=== PATIENT | male | born 1945 | race Caucasian/White ===

== ENCOUNTER 2017-09-30 19:01 | Emergency (ER) | payer OTHER ==
[~2017-09-30] VITALS: Ht 182.9 cm; Wt 106.6 kg
[~2017-09-30 19:01] MED LIST: CARAFATE 1GM1000 MG PO; CRESTOR20 MG PO; EDARBYCLOR 40 M1 TAB PO; JANUMET PO; JENTADUETO 2.51 TAB PO; MULTI VITAMINS1 TAB PO; NORCO 325 MG-51 TAB PO; PERCOCET 325 MG1 TA2 PO; PRILOSEC40 MG PO; VITAMIN C500 M3 PO; VITAMIN D1000 IU PO; ZOFRAN 4 MG TABL4 MG PO; ZOFRAN ODT4 MG PO
--- NOTE | 2017-09-30 19:42 | ED GI/GU/ABDOMINAL COMPLAINT ---
History of Present Illness General Chief Complaint: Abdominal Pain/Flank Pain Stated Complaint: ABD PAIN Source: patient Exam Limitations: no limitations Vital Signs & Intake/Output Vital Signs & Intake/Output Vital Signs Date Time Temp Pulse Resp B/P B/P Pulse O2 O2 Flow FiO2 Mean Ox Delivery Rate 09/30 2110 97.5 57 18 142/77 95 09/30 1917 98.3 81 18 199/76 98 Room Air ED Intake and Output 10/01 0000 09/30 1200 Intake Total 1000 Output Total Balance 1000 Intake, IV 1000 Patient 235 lb Weight Allergies Coded Allergies: NO KNOWN ALLERGIES (05/13/14) Reconcile Medications Amlodipine Besylate 10 MG TABLET 1 TAB PO DAILY HIGH BLOOD PRESSURE (Reported ) Atorvastatin Calcium 80 MG TABLET 1 TAB PO DAILY HIGH CHOLESTROL (Reported) AZILSARTAN MED/CHLORTHALIDONE (Edarbyclor 40-12.5 MG Tablet) 40 MG-12.5 MG TABLET 1 TAB PO DAILY DIABETES (Reported) Chlorthalidone 25 MG TABLET 1 TAB PO DAILY HIGH BLOOD PRESSURE (Reported) Empagliflozin (Jardiance) 25 MG TABLET DIABETES (Reported) Glipizide 5 MG TABLET 1 TAB PO BID DIABETES (Reported) LINAGLIPTIN/METFORMIN HCL (Jentadueto 2.5 MG-1000 MG Tab) 2.5 MG-1,000 MG TABLET 1 TAB PO BID DIABETES (Reported) Lisinopril 20 MG TABLET 1 TAB PO DAILY HIGH BLOOD PRESSURE (Reported) Metformin HCl 500 MG TABLET 1 TAB PO BID DIABETES (Reported) Omeprazole (Prilosec) 40 MG ECC 1 TAB PO DAILY ABDOMINAL PAIN Rosuvastatin Calcium (Crestor) 20 MG TABLET 40 TAB PO 2000 DIABETES (Reported ) Sucralfate (Carafate 1GM <1000MG> Tab) 1 GRAM TABLET 1 TAB PO 4 TIMES/DAY ASHLEY PAIN Triage Note: 71M WITH HX PANCREATITIS, SYMPTOMS SIMILAR AND STARTING LAST NIGHT. REPORTS EPIGASTRIC 7/10 PAIN CONSTANT. DENIES N/V/D. -FEVERS/CHILLS. DENIES CP/SOB BUT APPEARS DYSPNIC AND UNCOMFORTABLE Triage Nurses Notes Reviewed? yes Onset: Gradual Duration: day(s): Timing: recent history Quality/Severity: burning, cramping Location: epigastric Radiation: no radiation Activities at Onset: "I ate a double cheese burger last night." Prior Abdominal Problems: similar symptoms Modifying Factors: Worsens With: movement, palpation. Associated Symptoms: abdominal pain, nausea/vomiting HPI: 71 gentleman h/o pancreatitis, diabetes, htn, presents with mid epigastric abdominal pain. "At first I thought it was going to be reflux, but then it got worse... and now it feels just like pancreatitis.... I think it was the double cheese burger that I ate." He notes slight nausea, mid epigastric burning type abdominal pain without radiation, dyspnea, fever, chest pain, diarrhea. He is otherwise well. Past History Travel History Traveled to [place] past 21 day No Medical History Any Pertinent Medical History? see below for history Neurological: NONE EENT: NONE Cardiovascular: NONE Respiratory: NONE Gastrointestinal: PANCREATITIS Hepatic: NONE Renal: NONE Musculoskeletal: NONE Psychiatric: NONE Endocrine: diabetes Influenza Vaccine: 04/11/10 Surgical History Surgical History: non-contributory Psychosocial History Who do you live with Spouse Services at Home None What is your primary language Luxembourgish Tobacco Use: Never used ETOH Use: denies use Illicit Drug Use: denies illicit drug use Family History Hx Contributory? No Review of Systems Review of Systems Constitutional: Reports: no symptoms. EENTM: Reports: no symptoms. Respiratory: Reports: no symptoms. Cardiovascular: Reports: no symptoms. GI: Reports: no symptoms. Genitourinary: Reports: no symptoms. Musculoskeletal: Reports: no symptoms. Skin: Reports: no symptoms. Neurological/Psychological: Reports: no symptoms. Hematologic/Endocrine: Reports: no symptoms. Immunologic/Allergic: Reports: no symptoms. All Other Systems: Reviewed and Negative Physical Exam Physical Exam General Appearance: well developed/nourished, mild distress Head: atraumatic, normal appearance Eyes: Bilateral: normal appearance. Ears, Nose, Throat, Mouth: hearing grossly normal, moist mucous membrane Neck: normal inspection, supple, full range of motion, normal alignment Respiratory: normal breath sounds, chest non-tender, no respiratory distress, quiet respiration, lungs clear Cardiovascular: regular rate/rhythm Gastrointestinal: normal bowel sounds, soft, mild distension, +bowel sounds. mild-moderate mid epigastric tenderness to palpation, without rebound or guarding. Back: normal inspection Extremities: normal range of motion Neurologic/Psych: no motor/sensory deficits, awake, alert, oriented x 3 Skin: intact, normal color, warm/dry Core Measures ACS in differential dx? No Sepsis Present: No Sepsis Focused Exam Completed? No Progress Differential Diagnosis: pancreatitis vs reflux vs other. Plan of Care: Orders Procedure Date/time Status TROPONIN LEVEL 09/30 1912 Complete LIPASE 09/30 1912 Complete HEPATIC FUNCTION PANEL 09/30 1912 Complete D-DIMER 09/30 1912 Complete CBC WITHOUT DIFFERENTIAL 09/30 1912 Complete BASIC METABOLIC PANEL 09/30 1912 Complete AMYLASE 09/30 1912 Complete EKG 09/30 1912 Active Laboratory Tests 09/30/17 1950: Anion Gap 13, Estimated GFR > 60, BUN/Creatinine Ratio 22.2, Glucose 127 H, Calcium 11.0 H, Total Bilirubin 1.2, Direct Bilirubin 0.4, AST 12 L, ALT 22, Alkaline Phosphatase 78, Troponin I < 0.01, Total Protein 7.7, Albumin 4.6, Amylase 79, Lipase 458 H, D-Dimer High Sensitivty 250 H, CBC w Diff NO MAN DIFF REQ, RBC 4.93, MCV 86.4, MCH 29.7, MCHC 34.4, RDW 13.7, MPV 8.4, Gran % 65.4, Lymphocytes % 22.3, Monocytes % 8.0, Eosinophils % 4.0, Basophils % 0.3, Absolute Granulocytes 5.8, Absolute Lymphocytes 2.0, Absolute Monocytes 0.7 H, Absolute Eosinophils 0.4, Absolute Basophils 0 Diagnostic Imaging: Viewed by Me: CT Scan. Discussed w/RAD: CT Scan. Radiology Impression: PATIENT: ROSE MONTES PRESENT AGE: 71 PATIENT ACCOUNT NO: [id number] : 46 LOCATION: [facility] ORDERING PHYSICIAN: Brian Campbell MD SERVICE DATE: 09/30/17 EXAM TYPE: CAT - CT ABD & PELVIS W/O IV CONTRAS EXAMINATION: CT ABDOMEN AND PELVIS WITHOUT CONTRAST CLINICAL INFORMATION: Epigastric abdominal pain. COMPARISON: CT abdomen/pelvis 05/24/2014. TECHNIQUE: Multidetector volumetric imaging was performed from the superior aspect of the liver through the pubic symphysis. Sagittal and coronal reformatted images were obtained on the technologist's workstation. DLP: 812.34 mGy-cm FINDINGS: LUNG BASES: Tiny calcified granuloma in the right middle lobe. Mild hypoventilatory changes of the dependent lungs with stable 1.2 cm hypodense nodule in the left lung base, stable since at least 01/17/2013. LIVER, GALLBLADDER, AND BILIARY TREE: The liver is normal in size, shape, and attenuation. Small cyst in the left hepatic lobe is unchanged. Other hepatic cysts noted on prior MRI are less conspicuous on this examination. No biliary ductal dilatation is present. The gallbladder is unremarkable with no evidence of radiopaque gallstones, gallbladder wall thickening, or obvious pericholecystic inflammatory changes. PANCREAS: Mild peripancreatic inflammatory changes surrounding the pancreatic head. No peripancreatic fluid collection or abscess. There are small peripancreatic lymph nodes. SPLEEN: Unremarkable. ADRENAL GLANDS: Unremarkable. KIDNEYS AND URETERS: The kidneys are normal in size, shape, and attenuation. No hydronephrosis, hydroureter, or calculi seen. Stable small bilateral renal cysts, better evaluated on prior MRI. No perinephric stranding. BLADDER: Unremarkable. GASTROINTESTINAL TRACT: The small and large bowel are unremarkable. The appendix is unremarkable. ABDOMINAL WALL: No significant hernia is appreciated. LYMPH NODES: Small peripancreatic lymph nodes. No enlarged lymph nodes. VASCULAR: Mild atherosclerotic changes of the abdominal aorta and its branches. PELVIC VISCERA: Coarse calcifications in the prostate. Prostate is mildly enlarged. OSSEOUS STRUCTURES: Mild degenerative changes the visualized spine. IMPRESSION: Mild peripancreatic inflammatory changes surrounding the pancreatic head. Findings may represent early acute interstitial edematous pancreatitis. No peripancreatic fluid collection. Correlate with laboratory values. No other acute findings in the abdomen or pelvis. Stable chronic findings, as above. DICTATED BY: Denny Pittman MD DATE/TIME DICTATED:09/30/172057 KILN HAND:SHELIA DATE/ TIME TRANSCRIBED:09/30/172057 CONFIDENTIAL, DO NOT COPY WITHOUT APPROPRIATE AUTHORIZATION. <Electronically signed in Other Vendor System> SIGNED BY: Denny Pittman MD 09/30/172109 Initial ED EKG: nsr, no acute changes. Departure Departure Disposition: HOME OR SELF CARE Condition: Stable Clinical Impression Primary Impression: Abdominal pain Secondary Impressions: Pancreatitis Referrals: Neeraj BAEZ,Dominic Campos (PCP/Family) Departure Forms: Customer Survey General Discharge Information Comments 09/30/17, 21:49.... pt feeling better after supportive medications.... lipase slightly elevated. ct scan relatively benign... pt safe for discharge with close follow up advised.
[2017-09-30 19:59] LABS: ABSOLUTE BASOPHIL COUNT 0 /CUMM (0.0-0.2); ABSOLUTE EOSINOPHIL COUNT 0.4 /CUMM (0.0-0.7); ABSOLUTE GRANULOCYTE CT 5.8 /CUMM (1.4-6.5); ABSOLUTE MONOCYTE COUNT 0.7 /CUMM (0.10-0.60); BASOPHIL % 0.3 % (0.0-2.0); GRANULOCYTE % 65.4 % (42.2-75.2); HEMATOCRIT 42.6 % (42-52); MEAN CORPUSCULAR HGB 29.7 PG (27.0-31.0); MEAN CORPUSCULAR HGB CONC 34.4 G/DL (33.0-37.0); MEAN CORPUSCULAR VOLUME 86.4 FL (80.0-94.0); MEAN PLATELET VOLUME 8.4 FL (7.4-10.4); PLATELET COUNT 234 /CUMM (130-400); RBC DISTRIBUTION WIDTH 13.7 % (11.5-14.5); RED BLOOD CELL CT 4.93 /CUMM (4.70-6.10); WHITE BLOOD CELL COUNT 8.9 /CUMM (4.8-10.8)
[2017-09-30] MEDS ORDERED: AMLODIPINE BESY10 M1 PO (20:02)
[2017-09-30] MEDS ORDERED: LISINOPRIL20 M1 PO (20:03)
[2017-09-30] MEDS ORDERED: GLIPIZIDE5 M2 PO (20:03)
[2017-09-30] MEDS ORDERED: ATORVASTATIN CA80 M1 PO (20:04)
[2017-09-30] MEDS ORDERED: JARDIANCE25 M1 (20:04)
[2017-09-30] MEDS ORDERED: CHLORTHALIDONE25 M1 PO (20:04)
[2017-09-30] MEDS ORDERED: METFORMIN HCL500 M3 PO (20:04)
--- NOTE | 2017-09-30 21:10 | CT SCAN REPORT ---
EXAMINATION: CT ABDOMEN AND PELVIS WITHOUT CONTRAST CLINICAL INFORMATION: Epigastric abdominal pain. COMPARISON: CT abdomen/pelvis 05/24/2014. TECHNIQUE: Multidetector volumetric imaging was performed from the superior aspect of the liver through the pubic symphysis. Sagittal and coronal reformatted images were obtained on the technologist's workstation. DLP: 812.34 mGy-cm FINDINGS: LUNG BASES: Tiny calcified granuloma in the right middle lobe. Mild hypoventilatory changes of the dependent lungs with stable 1.2 cm hypodense nodule in the left lung base, stable since at least 01/17/2013. LIVER, GALLBLADDER, AND BILIARY TREE: The liver is normal in size, shape, and attenuation. Small cyst in the left hepatic lobe is unchanged. Other hepatic cysts noted on prior MRI are less conspicuous on this examination. No biliary ductal dilatation is present. The gallbladder is unremarkable with no evidence of radiopaque gallstones, gallbladder wall thickening, or obvious pericholecystic inflammatory changes. PANCREAS: Mild peripancreatic inflammatory changes surrounding the pancreatic head. No peripancreatic fluid collection or abscess. There are small peripancreatic lymph nodes. SPLEEN: Unremarkable. ADRENAL GLANDS: Unremarkable. KIDNEYS AND URETERS: The kidneys are normal in size, shape, and attenuation. No hydronephrosis, hydroureter, or calculi seen. Stable small bilateral renal cysts, better evaluated on prior MRI. No perinephric stranding. BLADDER: Unremarkable. GASTROINTESTINAL TRACT: The small and large bowel are unremarkable. The appendix is unremarkable. ABDOMINAL WALL: No significant hernia is appreciated. LYMPH NODES: Small peripancreatic lymph nodes. No enlarged lymph nodes. VASCULAR: Mild atherosclerotic changes of the abdominal aorta and its branches. PELVIC VISCERA: Coarse calcifications in the prostate. Prostate is mildly enlarged. OSSEOUS STRUCTURES: Mild degenerative changes the visualized spine. IMPRESSION: Mild peripancreatic inflammatory changes surrounding the pancreatic head. Findings may represent early acute interstitial edematous pancreatitis. No peripancreatic fluid collection. Correlate with laboratory values. No other acute findings in the abdomen or pelvis. Stable chronic findings, as above.
[2017-09-30 21:11] VITALS: BP 142/77
== END 2017-09-30 21:51 ==
LOC: ERH 19:01
PROVIDERS: Pediatrics
DX: K85.90 Acute pancreatitis without necrosis or infection, unspecified (principal)
CPT/HCPCS: 74176; 93005; 93010; 96374; 96375; J0131; J2405